=== PATIENT | male | born 2000 | race Caucasian/White ===

== ENCOUNTER 2020-10-10 10:15 | Emergency (ER) | payer MEDICAID ==
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
[2020-10-10 12:30] LABS: Basophils % (Auto) 0.4 % (0.0-1.8); Eosinophils # (Auto) 0.1 K/mm3 (0.0-0.4); Eosinophils % (Auto) 1.1 % (0.0-4.3); Hematocrit 42.7 % (35.5-45.6); Hemoglobin 14.5 gm/dl (11.8-15.2); Lymphocytes # (Auto) 1.1 K/mm3 (1.2-5.4); Lymphocytes % (Auto) 13.9 % (13.4-35.0); Mean Corpuscular HGB Conc 34 % (32-34); Mean Corpuscular Volume 90 fl (84-94); Monocytes # (Auto) 0.5 K/mm3 (0.0-0.8); Monocytes % (Auto) 6.2 % (0.0-7.3); Platelet Count 259 K/mm3 (140-440); Red Blood Count 4.73 M/mm3 (3.65-5.03); Red Cell Distribution Width 12.8 % (13.2-15.2)
[2020-10-10 12:40] LABS: Alanine Aminotransferase 20 units/L (7-56); Albumin 4.7 g/dL (3.9-5); Blood Urea Nitrogen 12 mg/dL (9-20); Calcium 9.4 mg/dL (8.4-10.2); Hemolysis Index 4
[2020-10-10 12:43] LABS: BUN/Creatinine Ratio 17
[2020-10-10 13:29] LABS: Amphetamine Screen,Urine Negative; Benzodiazepines Screen,Urine Negative; Cocaine Screen,Urine Negative; Opiate Screen,Urine Negative
[2020-10-10 13:51] LABS: Bacteria,Urine 1+ /HPF (Negative); Bilirubin,Urine NEG (Negative); Blood,Urine NEG (Negative); Color,Urine Yellow (Yellow); Mucus,Urine 2+ /HPF
[2020-10-10 14:00] LABS: Cannabinoid Screen,Urine PRESUMPTIVE POSITIVE; Methadone Screen,Urine PRESUMPTIVE POSITIVE
[2020-10-11 09:40] VITALS: BP 112/69
--- NOTE | 2020-10-11 10:34 | Event Note ---
Date: 10/11/20 S: No events reported overnight O: Vital Signs 10/10/20 10/10/20 10/10/20 13:49 16:43 20:13 Temperature 98.2 F 98.7 F 98.2 F Pulse Rate 86 84 60 Respiratory 18 18 18 Rate Blood Pressure 134/86 132/84 117/52 [Left] O2 Sat by Pulse 99 100 97 Oximetry 10/11/20 09:39 Temperature 98.6 F Pulse Rate 78 Respiratory 20 Rate Blood Pressure 112/69 [Left] O2 Sat by Pulse 99 Oximetry A: History of agitated behavior P:Cleared by psych, awaiting case management consult for APS report
== END 2020-10-11 12:00 | disposition home or self-care (01) ==
LOC: ED 10:15
DX: F84.0 Autistic disorder (principal); R45.1 Restlessness and agitation; Z79.899 Other long term (current) drug therapy
CPT/HCPCS: 36415; 80053; 80307; 80320; 81001; 85025; G0480